=== PATIENT | female | born 1995 | race Two or more races ===

== ENCOUNTER 2025-08-02 17:58 | Emergency (ER) | payer MEDICAID, SELFPAY ==
[2025-08-02 18:00] VITALS: BP 135/80; PULSE 89; RESP 18; TEMP 37.2; O2SAT 100
[2025-08-02 18:31] VITALS: BMI 25.3
--- NOTE | 2025-08-02 18:39 | XR_ITS ---
Examination: OB Transvaginal ultrasound of the pelvis, complete Technique: Transvaginal sonographic images pelvis performed using raymond scale imaging Exam date and time: August 02, 2025, 2138 hrs. Indications: Onset vaginal bleeding and pelvic pain today Findings: Uterus 9.7 cm CRL 0.4 cm corresponds to 6 weeks 1 day gestational age Cardiac motion 171 BPM Right ovary 3.0 cm arterial flow. Left ovary 3.5 cm arterial flow 20 oh by 11 x 9 mm cyst Impression: Viable intrauterine gestation 6 weeks 1 day.
--- NOTE | 2025-08-02 18:39 | PD.EDVAGBL ---
ED OB Contraction Preg RMI/HPI General Chief complaint: Urogenital-Female Stated complaint: VAGINAL BLEEDING AND + PREG Time Seen by Provider: 08/02/25 18:12 Source: patient, RN notes reviewed and old records reviewed Arrival date/time: 08/02/25 17:58 Mode of arrival: ambulatory Limitations: no limitations RME / HPI RME / HPI Narrative: 29yof approximately 6 weeks gestation presents to ED for vaginal bleeding that started today. No pelvic pain reported. No medications or treatments [employer]. LMP 06/19. Related Data Allergies Allergy/AdvReac Type Severity Reaction Status Date / Time No Known Allergies Allergy Verified 08/02/25 18:02 Review of Systems Review of Systems Systems Reviewed: All systems reviewed, normal except as documented Genitourinary Genitourinary: Reports abnormal vaginal bleeding and Denies pelvic pain Past Medical History Social History SMOKING STATUS: Never smoker SUBSTANCE USE: does not use ALCOHOL: Never Past Medical History Comments PMH COMMENT: denies pmhx ED Exam General Limitations: Present no limitations General appearance: Present alert and in no apparent distress Head Head exam: Present atraumatic and normocephalic Eye Eye exam: Present normal appearance, PERRL and EOMI ENT ENT exam: Present normal exam and mucous membranes moist Neck Neck exam: Present normal inspection and full ROM Chest Chest inspection: Present normal inspection and symmetric chest wall rise Respiratory Respiratory exam: Present normal lung sounds bilaterally; Absent respiratory distress Cardiovascular Cardiovascular exam: Present regular rate and normal rhythm Abdominal Exam Abdominal exam: Present soft; Absent distention, tenderness, guarding or rebound Extremities Exam Extremities exam: Present normal inspection and full ROM Neurological Exam Neurological exam: Present alert and oriented X3 Psychiatric Psychiatric exam: Present normal affect and normal mood Skin Skin exam: Present warm, dry, intact and normal color Course Quality Measures none Orders Category Date Time Status US OB transvaginal Stat Exams 08/02/25 18:39 Completed Beta HCG,Quantitative Stat Lab 08/02/25 19:13 Completed CBC Stat Lab 08/02/25 19:13 Completed CMP [Comprehensive Metabolic Panel] Stat Lab 08/02/25 19:13 Completed HCG Qualitative,Urine Stat Lab 08/02/25 19:27 Completed UA [Urinalysis] Stat Lab 08/02/25 19:27 Completed Vital Signs Vital signs: Vital Signs Temperature 98.9 F 08/02/25 18:00 Pulse Rate 89 08/02/25 18:00 Respiratory Rate 18 08/02/25 18:00 Blood Pressure 135/80 H 08/02/25 18:00 Pulse Oximetry (%) 100 08/02/25 18:00 Oxygen Delivery Method Room Air 08/02/25 18:00 Vaginal Bleeding MDM Narrative MDM Narrative: 29yof approximately 6 weeks gestation presents to ED for vaginal bleeding that started today. No pelvic pain reported. No medications or treatments [employer]. LMP 06/19. Patient updated on labs and imaging. Encourage close follow-up with OB. Recommended daily prenatals. Tylenol prn pain. Stable for discharge, RTED precautions given. Patient data External records reviewed:: None (no prior visits) Clinical information provided by:: patient Social determinants that could affect healthcare access:: other (specify) (Poor access to healthcare, acculturation difficulty) Patient has the following chronic illnesses:: none How is presenting disease/condition affected by chronic disease/condition?: no chronic disease Evaluation data The following diagnostics were reviewed and interpreted by me:: lab results and radiology exam(s) Lab and/or radiology exams considered but not ordered:: none Interpretation Summary: hcg 9.9, mild anemia OB ultrasound: Viable IUP per my read hcg quant: [id number] Medications / Prescriptions Medications or Prescriptions considered but not ordered:: None Medication administrations:: None Consultations Consultation(s) initiated? (list below): No Diagnosis Vaginal Bleeding Differential Diagnosis: missed , threatened , ectopic without intrauterine and vaginal bleeding Most likely diagnosis given after review of the tests above:: Threatened miscarriage Admission Indicated Admission indicated?: not indicated Admission Request Was there a request for admission?: No Disposition Plan Disposition Plan: Discharge Discharge Attestation Discharge Attestation: The patient and all family members were given an opportunity to ask questions and understood the discharge instructions. Discharge instructions specifically effects, indications for sooner follow up or return to the emergency department, and the expected course of current diagnosis. Patient condition: Stable Discharge Plan Plan Patient Disposition: HOME (Self Care) Patient condition on transfer: Stable Prescriptions/Referrals Referrals: No Primary/Family,Physician [Primary Care Provider] - In 1 week Problem List Clinical Impression: Miscarriage, threatened, early Patient/Caregiver Discharge Instructions Education Materials: ED Possible Miscarriage ... Additional Instructions: Your hcg ( hormone) level was 08933 today. Please follow up with your ob in following week for recheck of lab. Print Language: Mongolian Stand Alone Forms: Tiffanie Award Info., Patient Portal Info Letter PA/CUSTOMS COMPLIANCE MANAGER Supervising Physician PA/CUSTOMS COMPLIANCE MANAGER Supervising Physician: Deann
[2025-08-02 19:31] LABS: Collection Type, Urine Clean Catch
[2025-08-02 19:35] LABS: HCG Qualitative,Urine Positive
[2025-08-02 19:50] LABS: Bacteria,Urine Rare; Bilirubin,Urine Negative (Negative); Blood,Urine 3+ (Negative); Clarity,Urine Turbid (Clear/Hazy); Color,Urine Yellow (Lt Yel-Yel); Glucose, Urine Negative (Negative); Ketones,Urine Trace (Negative); Leukocyte Esterase,Urine Positive (Negative); Nitrite,Urine Negative (Negative); PH,Urine 6.0 (5.0-7.0); Protein,Urine 1+ (Neg - Trace); RBC,Urine 149 /hpf (0-3); Specific Gravity,Urine 1.032 (1.001-1.035); Squamous Epithelial Cell,Urine 7 /hpf (0-5); Urobilinogen,Urine 2.0 mg/dL (0.0-1.0); WBC,Urine 2 /hpf (0-5)
[2025-08-02 19:58] LABS: Basophils # (Auto) 0.1 Thou/mm3 (0.0-0.2); Basophils % (Auto) 1 % (0-2.5); Eosinophils # (Auto) 0.2 Thou/mm3 (0.0-0.5); Eosinophils % (Auto) 2 % (0-10); Hematocrit 32.2 % (36.0-46.0); Hemoglobin 9.9 g/dL (12.0-16.0); Immature Granulocytes Auto 0.05 Thou/mm3 (0.00-0.00); Lymphocytes # (Auto) 2.0 Thou/mm3 (1.0-4.8); Lymphocytes % (Auto) 20 % (10-50); Mean Corpuscular HGB Conc 30.7 g/dl (31.0-37.0); Mean Corpuscular Hemoglobin 21.5 pg (25.0-35.0); Mean Corpuscular Volume 70 fL (80-100); Monocytes # (Auto) 0.8 Thou/mm3 (0.0-0.8); Monocytes % (Auto) 8 % (0-12); Neutrophils # (Auto) 6.7 Thou/mm3 (1.8-7.7); Neutrophils % (Auto) 69 % (37-80); Nucleated Red Blood Cell # 0.00 Thou/mm3 (0.00-0.00); Nucleated Red Blood Cell % 0 /100 WBC (0); Platelet Count 313 Thou/mm3 (140-440); RDW Standard Deviation 34.5 fL (36.4-46.3); Red Blood Count 4.61 Miln/mm3 (4.00-5.20); White Blood Count 9.8 Thou/mm3 (3.6-11.0)
[2025-08-02 20:33] LABS: Alanine Aminotransferase 13 U/L (10-49); Albumin, Serum 4.9 gm/dL (3.5-5.0); Albumin/Globulin Ratio 2.0 (1.2-2.2); Alkaline Phosphatase 101 U/L (46-116); Anion Gap 11 (7-16); Aspartate Amino Transferase 24 U/L (0-34); BUN/Creatinine Ratio 13 Ratio (12-20); Bilirubin,Total 0.3 mg/dL (0.3-1.2); Blood Urea Nitrogen 8 mg/dL (9-23); Calcium 9.3 mg/dL (8.3-10.6); Calcium (Corrected) 9.3 mg/dL (8.5-10.1); Carbon Dioxide 22.6 mMol/L (20.0-31.0); Chloride 104 mMol/L (98-107); Creatinine (Component) 0.6 mg/dL (0.6-1.3); Estimated Creatinine Clearance 112.1 mL/min (>60); Globulin 2.5 gm/dL (2.3-3.5); Glucose 102 mg/dL (74-106); Osmolality,Calculated 273 (275-295); Potassium 3.7 mMol/L (3.4-5.1); Sodium 138 mMol/L (136-145); Total Protein 7.4 gm/dL (5.7-8.2); eGFR > 60 See Note
[2025-08-02 22:49] LABS: Beta HCG,Quantitative 50130 mIU/mL (<5.0)
== END 2025-08-02 23:40 | disposition home or self-care (01) ==
PROVIDERS: Physician Assistant; Emergency Provider Emergency Medicine
DX: O20.0 Threatened abortion (principal)
CPT/HCPCS: 36415; 76817; 80053; 81001; 81025; 84702; 85025; 99284